=== PATIENT | female | born 1970 | race Caucasian/White ===

== ENCOUNTER 2024-10-29 04:48 | Emergency (ER) | payer BC, SELFPAY ==
[2024-10-29 04:52] VITALS: BP 169/85; PULSE 56; TEMP 36.5; O2SAT 96; BMI 33.1
--- NOTE | 2024-10-29 05:32 | ED_ITS ---
HPI - Anxiety General Chief Complaint: Anxiety Stated Complaint: CHEST PAIN Time Seen by Provider: 10/29/24 05:26 Source: patient Mode of arrival: walk-in Limitations: no limitations History of Present Illness HPI narrative: history of anxiety and panic. she is prescribed hydroxyzine by her PCP and states it does work when she takes it. States she had a stress test last year because of hr anxiety and it was normal. She is not diabetic. States she woke up out of her sleep this AM and felt like her heart was racing. States she also had mild heart burn. She drink antacid and her heart burn resolved within a minute. She now arrives here and no longer is feeling anxious. she now regrets coming in. No dyspnea or diaphoresis. States her panic attacks are associated with her heart racing sensation Related Data Home Medications ?Medication ?Instructions ?Recorded ?Confirmed hydroxyzine HCl 25 mg tablet mg 10/29/24 Allergies Allergy/AdvReac Type Severity Reaction Status Date / Time No Known Drug Allergies Allergy Verified 10/29/24 05:05 Review of Systems ROS Status of ROS 10 or more systems reviewed and unremark able except as noted in history and below PFSH PFSH Social History Little interest or pleasure in doing things: not at all Feeling down, depressed, or hopeless: not at all Exam Constitutional Vital Signs, click to edit/add: Last Vital Signs Temp 97.7 F 10/29/24 04:52 Pulse 56 L 10/29/24 04:52 Resp 18 10/29/24 04:52 BP 169/85 H 10/29/24 04:52 Pulse Ox 96 10/29/24 04:52 O2 Del Method Room Air 10/29/24 04:52 Common normals: no apparent distress, average body habitus, oriented x3, no limitations, healthy appearing, alert and well nourished [facility] Common normals: normocephalic and head/scalp atraumatic Eye Common normals: EOMs intact bilaterally and conjunctivae normal Respiratory Common normals: normal respiratory effort, no retractions, no use of accessory muscles and clear to auscultation bilaterally Cardio Common normals: regular rate, regular rhythm, S1 normal heart sound and S2 normal heart sound Extremity Common normals: normal to inspection and full ROM Neuro Common normals: oriented x3, CN's II-XII intact bilaterally, moves all extremities and no focal motor deficits Psych Appearance: grossly normal Course Vital Signs Vital signs: Vital Signs Temperature 97.7 F 10/29/24 04:52 Pulse Rate 56 L 10/29/24 04:52 Respiratory Rate 18 10/29/24 04:52 Blood Pressure 169/85 H 10/29/24 04:52 Pulse Oximetry 96 10/29/24 04:52 Oxygen Delivery Method Room Air 10/29/24 04:52 Temperature 97.7 F 10/29/24 04:52 Pulse Rate 56 L 10/29/24 04:52 Respiratory Rate 18 10/29/24 04:52 Blood Pressure 169/85 H 10/29/24 04:52 Pulse Oximetry 96 10/29/24 04:52 Oxygen Delivery Method Room Air 10/29/24 04:52 MDM - Anxiety MDM Narrative Medical decision making narrative: patient presents with clinically what appears to be an anxiety attack. normal stress test last year. heart racing symptoms similar to past anxiety attacks. Now asymptomatic. She is now requesting to go home and does not want a workup. EKG low voltage. NSR. No acute findings. Patient discharged home per her request. Clinically I agree she appears to have anxiety attack. Normally I would still check labs etc but will not at patient's request Discharge Plan Discharge Chief Complaint: Anxiety Clinical Impression: Acute anxiety Patient Disposition: Home, Self-Care Prescriptions / Home Meds: No Action hydroxyzine HCl 25 mg tablet Print Language: Grenadian Instructions: Anxiety (ED) Referrals: Physician,Non-Staff, [Physician] - 1 week
--- NOTE | 2024-10-29 05:46 | ECG_ITS ---
[facility] Test Date: 2024-10-29 Pat Name: JENNIFER PETERS Department: Room: - Gender: Female Spot Billing Clerk: : 1970 Requested By: [id number] Order Number: [id number] Reading MD: VIRAJ GRAVES Measurements Intervals Mason Rate: 52 P: 47 NJ: 132 QRS: 39 QRSD: 90 T: 36 QT: 452 QTc: 432 Interpretive Statements 1100 Sinus rhythm 8102 Low QRS voltage in chest leads 9120 atypical ECG No previous ECG available for comparison Electronically Signed On 10-29-2024 12:27:00 EDT by VIRAJ GRAVES
== END 2024-10-29 05:42 | disposition home or self-care (01) ==
PROVIDERS: Emergency Provider Internal Medicine; PCP Family Medicine
DX: F41.9 Anxiety disorder, unspecified (principal)
CPT/HCPCS: 93005; 99283